=== PATIENT | female | born 1975 | race Two or more races ===

== ENCOUNTER 2022-09-30 11:36 | Emergency (ER) | payer SELFPAY ==
[~2022-09-30] VITALS: Ht 157.5 cm; Wt 82.6 kg
[2022-09-30 12:37] LABS: Urine Bacteria NONE SEEN /hpf (None Seen); Urine Blood 2+ /uL (Negative); Urine Mucus FEW (None Seen); Urine Specific Gravity 1.024 (1.001-1.035); Urine WBC 1 /hpf (0 - 5)
[2022-09-30 13:35] LABS: Basophils # (auto) 0.1 10 ^3/uL (0-0.2); Basophils % (auto) 0.6 % (0.0-2.0); Eosinophils # (auto) 0.1 10 ^3/uL (0-0.8); Eosinophils % (auto) 0.6 % (0.0-7.0); Hematocrit 43.8 % (36.0-46.0); Hemoglobin 14.9 g/dL (12.2-16.2); Lymphocytes # (auto) 1.9 10 ^3/uL (0.4-5.4); Lymphocytes % (auto) 18.3 % (10.0-50.0); Mean Corpuscular Hemoglobin 30.7 pg (28.0-32.0); Mean Corpuscular Hgb Conc. 34.1 g/dL (32.0-36.0); Mean Corpuscular Volume 89.9 fL (80.0-100.0); Monocytes # (auto) 0.8 10 ^3/uL (0-1.3); Neutrophils # (auto) 7.4 10 ^3/uL (1.6-8.6); Neutrophils % (auto) 72.5 % (37.0-80.0); Nucleated Red Blood Cells % 0.1 %; Red Blood Cells 4.87 10^6/uL (4.0-5.20); Red Cell Distribution Width 13.3 % (11.8-14.3); White Blood Cell 10.2 10^3/uL (4.4-10.8)
[2022-09-30 13:55] LABS: BUN/Creatinine Ratio 18.3; Calcium 9.3 mg/dL (8.5-10.1); Potassium 4.1 mmol/L (3.5-5.1)
[2022-09-30 14:06] VITALS: BP 152/103
[2022-09-30] MEDS ORDERED: KETOROLAC TROMETH 60MG/2ML VIAL IM ONE (14:30)
[2022-09-30] MEDS ORDERED: IBUP800T27 PO (15:09)
== END 2022-09-30 15:13 | disposition home or self-care (01) ==
LOC: ER 11:36
DX: G44.209 Tension-type headache, unspecified, not intractable (principal); F41.9 Anxiety disorder, unspecified
CPT/HCPCS: 36415; 70450; 80048; 81001; 85025; 93005; 96372; 99285; J1885

== ENCOUNTER 2023-04-24 21:49 | Emergency (ER) | payer SELFPAY ==
[~2023-04-24] VITALS: Ht 157.5 cm; Wt 86.4 kg
[~2023-04-24 21:49] MED LIST: IBUP-1456 PO
[2023-04-24] MEDS ORDERED: HYDROcodone-ACET 5/325MG TAB PO ONE (22:15)
[2023-04-24] MEDS ORDERED: KETOROLAC TROMETH 60MG/2ML VIAL IM ONE (22:15)
[2023-04-25] MEDS ORDERED: HYDR-4902 PO (00:23)
[2023-04-25] MEDS ORDERED: LORazepam 0.5 MG TAB PO ONE (00:45)
[2023-04-25 01:30] VITALS: BP 152/93; PULSE 66; RESP 18; TEMP 97.7; O2SAT 97
== END 2023-04-25 01:48 | disposition home or self-care (01) ==
LOC: ER 21:52
DX: S93.401A Sprain of unspecified ligament of right ankle, initial encounter (principal); S93.601A Unspecified sprain of right foot, initial encounter; I10 Essential (primary) hypertension; F41.9 Anxiety disorder, unspecified; V89.2XXA Person injured in unspecified motor-vehicle accident, traffic, initial encounter; Y93.89 Activity, other specified; Y92.89 Other specified places as the place of occurrence of the external cause; Y99.8 Other external cause status
CPT/HCPCS: 36415; 73600; 84484; 96372; 99285; J1885; 93005

== ENCOUNTER 2023-07-10 02:55 | Emergency (ER) | payer MEDICAID, OTHER ==
[~2023-07-10] VITALS: Ht 160 cm; Wt 78.0 kg
[~2023-07-10 02:55] MED LIST changes: +HYDR-4902 PO
[2023-07-10 03:38] LABS: Alanine Aminotransferase 27 U/L (7-40); Albumin 4.4 g/dL (3.2-4.8); Alkaline Phosphatase 94 U/L (46-116); Anion Gap 7 (5-15); Aspartate Aminotransferase 33 U/L (13-40); BUN/Creatinine Ratio 9.9 (10.0-20.0); Bilirubin, Total 0.6 mg/dL (0.2-1.0); Blood Urea Nitrogen 9 mg/dL (9-23); Carbon Dioxide 23 mmol/L (20-30); Chloride 105 mmol/L (98-107); Glucose 119 mg/dL (74-106); Potassium 3.8 mmol/L (3.5-5.1); Sodium 135 mmol/L (136-145); Total Protein 7.3 g/dL (5.7-8.2)
[2023-07-10 03:39] LABS: Basophils # (auto) 0.1 10 ^3/uL (0-0.2); Basophils % (auto) 0.5 % (0.0-2.0); Eosinophils # (auto) 0.1 10 ^3/uL (0-0.8); Eosinophils % (auto) 1.1 % (0.0-7.0); Hematocrit 41.2 % (36.0-46.0); Hemoglobin 13.6 g/dL (12.2-16.2); Lymphocytes # (auto) 1.9 10 ^3/uL (0.4-5.4); Lymphocytes % (auto) 16.6 % (10.0-50.0); Mean Corpuscular Hemoglobin 28.5 pg (28.0-32.0); Mean Corpuscular Hgb Conc. 33.1 g/dL (32.0-36.0); Monocytes % (auto) 9.2 % (0.0-12.0); Neutrophils # (auto) 8.2 10 ^3/uL (1.6-8.6); Neutrophils % (auto) 72.6 % (37.0-80.0); Nucleated Red Blood Cells % 0.1 %; Red Blood Cells 4.79 10^6/uL (4.0-5.20); Red Cell Distribution Width 14.2 % (11.8-14.3); White Blood Cell 11.2 10^3/uL (4.4-10.8)
[2023-07-10] MEDS ORDERED: ONDANSETRON ODT 4 MG TAB PO ONE (04:30)
[2023-07-10] MEDS ORDERED: MAALOX PLUS or MAALOX 30 ML PO ONE (04:30)
[2023-07-10] MEDS ORDERED: LORazepam 0.5 MG TAB PO ONE (04:30)
[2023-07-10] MEDS ORDERED: LIDOCAINE VISCOUS 2% 15ML UD PO ONE (04:30)
[2023-07-10] MEDS ORDERED: PANT40TA2 PO (05:20)
[2023-07-10 06:40] VITALS: BP 142/88; PULSE 81; RESP 16; TEMP 98.2; O2SAT 98
== END 2023-07-10 07:03 | disposition home or self-care (01) ==
LOC: ER 02:55
DX: R07.89 Other chest pain (principal); K80.20 Calculus of gallbladder without cholecystitis without obstruction; Z79.899 Other long term (current) drug therapy
CPT/HCPCS: 36415; 71045; 80053; 83690; 83735; 84484; 85025; 93005